=== PATIENT | female | born 1985 | race African-American/Black ===

== ENCOUNTER → 2018-11-08 | Outpatient (CLI) | payer BC ==
[~2018-11-08] MED LIST: GADOBUTROL 7.5 MMOL/7.5 ML VIAL INT ART ONE; IOHEXOL 300 MG/ML 50 ML VIAL. IJ ONE; LIDOCAINE WITH 8.4% SOD BICARB 3 ML DISP.SYRIN. INJ ONE
--- NOTE | 2018-11-08 09:44 | RAD ---
Examination: SHOULDER ARTHROGRAM RIGHT History: RECURRENT RT SHOULDER DISLOCATION, RT SHOULDER PAIN
0.4 MIN FLUORO
1 IMAGE SENT
10ML OMNIPAQUE 300 USED
10ML SALINE USED
0.1ML GADAVIST USED
5ML LIDOCAINE 1% INJECTED Comparison/Correlation: None Risks and benefits of right shoulder joint arthrography were discussed with the patient and informed consent was obtained. Fluoroscopy was utilized for total of 0.4 minutes. After preliminary fluoroscopic imaging to determine needle placement site, cleansing with Betadine swabs was performed at the anticipated site of needle placement and a sterile drape was placed. Subsequently, 4 mL 1% lidocaine was administered with a 25-gauge needle along the anticipated course to the joint capsule. A 22-gauge spinal needle was introduced into the right shoulder joint capsule under fluoroscopic guidance. A total of 13 cc of diluted gadolinium contrast was administered into the right shoulder joint capsule. The original solution consisted of 10 cc Omnipaque 300, 10 cc normal saline, and 0.1 cc Gadavist. Patient tolerated the procedure well without immediate complications. IMPRESSION: Successful injection of contrast into the right glenohumeral joint capsule. Electronically signed by: Curt Zhu MD (11/08/2018 9:41 AM) [facility]
--- NOTE | 2018-11-09 08:20 | RAD ---
Examination: MR arthrogram right shoulder HISTORY: History of right shoulder pain COMPARISON: None available Technique: Multiplanar, multisequence MR imaging of the right shoulder performed after arthrogram injection FINDINGS: The long head of the biceps tendon is within the bicipital groove. The attachment of the long head of the biceps tendon to superior labral anchor grossly appears intact. The attachment of the subscapularis, supraspinatus and infraspinatus tendon grossly appears intact. The acromion is type II. There is minimal amount of fluid identified in the subacromial bursa seen only on the T2-weighted images probably mild bursal fluid/bursitis. There is blunting of the inferior glenoid with blunting of the anterior inferior labrum likely Bankart lesion possibly old given no evidence of flow and edema. There is scalloping of the posterolateral humerus head likely Hill-Sachs lesion without obvious edema. There is a cartilaginous defect in the anterior-inferior labrum. The muscle bulk grossly appears unremarkable. IMPRESSION: 1. Blunting of the anteroinferior glenoid with blunted appearance of the labrum in the anterior inferior region likely a Bankart lesion possibly an old Bankart lesion with scalloping of the posterolateral humerus head likely old Hill-Sachs lesion. 2. There is a small cartilage defect identified in the anterior inferior labrum. Electronically signed by: Lucas Retana MD (11/09/2018 8:17 AM) [id number]
== END | disposition home or self-care (01) ==
LOC: RAD 08:07
PROVIDERS: ATTEND Orthopaedic Surgery
DX: M24.411 Recurrent dislocation, right shoulder (principal)
CPT/HCPCS: 73040; 73222; A9585; Q9967